=== PATIENT | male | born 2000 | race Caucasian/White ===

== ENCOUNTER 2022-02-23 19:44 | Emergency (ER) | payer SELFPAY ==
[~2022-02-23] VITALS: Ht 172.7 cm; Wt 86.0 kg
[2022-02-23] MEDS ORDERED: TETANUS, DIPHTHERIA, PERTUSSIS VAC/PF 0.5ML (>10YR OLD) IM ONE (20:15)
[2022-02-23] MEDS ORDERED: IBUPROFEN 600MG TABLET PO ONE (20:15)
[2022-02-23 21:28] VITALS: BP 125/72
[2022-02-23] MEDS ORDERED: AMOX1TAB16 MT (22:15)
[2022-02-23] MEDS ORDERED: IBUP-2029 MT (22:15)
== END 2022-02-23 22:48 | disposition home or self-care (01) ==
LOC: ER 19:44
DX: S09.90XA Unspecified injury of head, initial encounter (principal); Y08.89XA Assault by other specified means, initial encounter; Y93.89 Activity, other specified; Y92.89 Other specified places as the place of occurrence of the external cause; Y99.8 Other external cause status; Z87.891 Personal history of nicotine dependence
CPT/HCPCS: 70486; 90471; 90715; 99284